=== PATIENT | male | born 1965 | race Caucasian/White ===

== ENCOUNTER 2023-11-05 21:09 | Emergency (ER) | payer BC ==
[~2023-11-05] VITALS: Ht 175.2 cm; Wt 114.3 kg
[2023-11-05] MEDS ORDERED: Ketorolac Tromethamine 60 MG/2 ML VIAL IM ONE (21:30)
[2023-11-05] MEDS ORDERED: Dexamethasone Sodium Phospha 20 MG/5 ML VIAL IM ONE (21:30)
[2023-11-05] MEDS ORDERED: LIDOCAINE PAIN1 EACH T (23:43)
[2023-11-05] MEDS ORDERED: MELOXICAM15 MG PO (23:43)
[2023-11-05] MEDS ORDERED: CYCLOBENZAPRINE5 M3 PO (23:43)
[2023-11-05] MEDS ORDERED: LIDOCAINE 1 EA PATCH T ONE (23:45)
== END 2023-11-05 23:58 | disposition home or self-care (01) ==
LOC: ED 21:09
DX: M62.830 Muscle spasm of back (principal)